=== PATIENT | male | born 1970 | race Caucasian/White ===

== ENCOUNTER 2017-12-12 16:53 | Emergency (ER) | payer OTHER ==
[~2017-12-12] VITALS: Ht 170.2 cm; Wt 74.0 kg
[~2017-12-12 16:53] MED LIST: VNTHFA/IN INH
[2017-12-12 17:06] VITALS: TEMP 36.3; Ht 170.2 cm; Wt 74.0 kg
[2017-12-12] MEDS ORDERED: KETOROLAC TROMETHAMINE 30 MG/ML VIAL IV STA (17:29)
[2017-12-12] MEDS ORDERED: SODIUM CHLORIDE 0.9% 1000ML 1,000 ML IV STA (17:29)
[2017-12-12 17:47] LABS: BASO % 0.3 %; BASO ABS # 0.02 K/uL (0-0.2); EOS % 2.1 %; EOS ABS # 0.15 K/uL (0-0.5); HEMATOCRIT 41.6 % (42-52); HEMOGLOBIN 14.8 g/dL (14.0-18.0); IG# 0.01 K/uL (0.00-0.02); LYMPH % 32.2 %; LYMPH ABS # 2.25 K/uL (1.2-3.4); MEAN CELL VOLUME 86.8 fL (80-100); MEAN CORPUSCULAR HEMOGLOBIN 30.9 pg (25-34); MEAN CORPUSCULAR HGB CONC 35.6 g/dl (32-36); MEAN PLATELET VOLUME 9.2 fL (7.4-10.4); MONO % 11.4 %; NEUT % 53.9 %; NEUT ABS # 3.76 K/uL (1.4-6.5); PLATELET COUNT 201 K/uL (130-400); RED CELL DISTRIBUTION WIDTH CV 13.1 % (11.5-14.5); WHITE BLOOD COUNT 6.99 K/uL (4.8-10.8)
--- NOTE | 2017-12-12 18:01 | DIAGNOSTIC IMAGING REPORT ---
ABD/PELVIS WITHOUT FOR STONE HISTORY: 47 years-old Male rt groin pain acute lower abdominal and right groin pain COMPARISON: CT abdomen and pelvis 12/12/2008 TECHNIQUE: Multiple axial CT images of the abdomen and pelvis were obtained without the use of IV contrast. A dose lowering technique was used consistent with the principals of NOE. FINDINGS: There is minimal dependent subsegmental bibasilar atelectasis. No pneumatosis or pneumoperitoneum identified. The imaged inferior cardiac chambers are unremarkable. The gallbladder, liver, spleen, pancreas and adrenal glands are within normal limits. 2 nonobstructing calculi are seen within the left kidney measuring up to 2 mm. There are least 3 nonobstructing calculi on the right measuring up to 2 mm. No ureteral calculi or obstructive uropathy. Ureters and urinary bladder are unremarkable. Nonspecific calcifications are seen within the bilateral corpus cavernosum. Aorta is normal in course and caliber. No bulky adenopathy. Moderate sized hiatal hernia with partially intrathoracic stomach. Prominent periesophageal vasculature is noted at the level of the diaphragmatic hiatus. No bowel obstruction or focal bowel wall thickening identified. Appendix appears normal. Soft tissues are within normal limits. Mild multilevel degenerative changes about the spine. IMPRESSION: 1. Bilateral nonobstructing nephrolithiasis without ureteral calculi or obstructive uropathy. 2. Moderate sized hiatal hernia with partially intrathoracic stomach. 3. No bowel obstruction or focal bowel wall thickening. Normal appendix. The above report was generated using voice recognition software. It may contain grammatical, syntax or spelling errors. Electronically signed by: Jeff Casey M.D. 12/12/2017 6:00 PM Dictated Date/Time: 12/12/2017 5:52 PM
[2017-12-12 18:02] LABS: CALCIUM 8.4 mg/dl (8.5-10.1); CREATININE 0.89 mg/dl (0.60-1.40); POTASSIUM 3.9 mmol/L (3.5-5.1)
--- NOTE | 2017-12-12 18:36 | DIAGNOSTIC IMAGING REPORT ---
(TESTICULAR) SCROTUM-CONT HISTORY: Pain rt testicle pain COMPARISON: None. FINDINGS: Right testis: Maximum dimension 4.4 cm. Normal vascular flow. Moderate edematous change of the epididymis. Left testis: Maximum dimension 4.7 cm. Normal vascular flow. IMPRESSION: 1. Normal testicular ultrasound. 2. Moderate right epididymitis. The above report was generated using voice recognition software. It may contain grammatical, syntax or spelling errors. Electronically signed by: Vitor Hu M.D. 12/12/2017 6:35 PM Dictated Date/Time: 12/12/2017 6:34 PM
[2017-12-12] MEDS ORDERED: LEVOFLOXACIN 250 MG TAB PO STA (19:46)
--- NOTE | 2017-12-12 19:49 | EMERGENCY ROOM VISIT NOTE ---
History Report prepared by Bob: Eulalia Wild Under the Supervision of: Karla FelixO. First contact with patient: 17:15 Chief Complaint: GROIN PAIN Stated Complaint: LOWER ABDOMINAL PAIN History of Present Illness The patient is a 47 year old male who presents to the Emergency Room with complaints of waxing and waning right testicular pain beginning 2 hours prior to arrival. The patient describes the pain as sharp. He denies any trauma and reports that he was watching television when the pain came on. The patient states that he was shoveling this morning and states that he possibly may have pulled something. The patient denies having nausea. He reports a history of kidney stones and states that he has cerebral palsy. Source of History: patient Onset: 2 hours prior to arrival Position: other (right testicle) Quality: sharp Timing: waxes/wanes Associated Symptoms: No nausea Review of Systems See HPI for pertinent positives & negatives. A total of 10 systems reviewed and were otherwise negative. Past Medical & Surgical Medical Problems: (1) Cerebral palsy (2) History of kidney stones Family History Seizures Social History Smoking Status: Never Smoker Alcohol Use: none Housing Status: lives alone Occupation Status: unemployed Current/Historical Medications Scheduled Carbamazepine Extended Release (Tegretol Xr), 400 MG PO AMPM Carbamazepine Extended Release (Tegretol Xr), 100 MG PO QAM Citalopram Hydrobromide (Citalopram Hydrobromide), 10 MG PO DAILY Omeprazole (Prilosec), 20 MG PO DAILY Scheduled PRN Albuterol Hfa (Ventolin Hfa), 2 PUFFS INH Q6H PRN for SOB/Wheezing Allergies Coded Allergies: Paroxetine (Unverified Allergy, Severe, SEIZURES, 10/28/09) Aspirin (Verified Adverse Reaction, D/T MEDS, 05/22/13) Phenytoin (Verified Adverse Reaction, D/T MEDS, 05/22/13) Uncoded Allergies: PHENABARBATOL (Adverse Reaction, D/T MEDS, 05/22/13) Physical Exam Vital Signs Date Time Temp Pulse Resp B/P (MAP) Pulse Ox O2 Delivery O2 Flow Rate FiO2 12/12/17 18:48 61 18 114/75 98 Room Air 12/12/17 17:06 36.3 55 16 124/85 98 Room Air Physical Exam CONSTITUTIONAL/VITAL SIGNS: Reviewed / noted above. GENERAL: Non-toxic in appearance. INTEGUMENTARY: Warm, dry, and [place]. HEAD: Normocephalic. EYES: without scleral icterus or trauma. ENT/OROPHARYNX: clear and moist. LYMPHADENOPATHY/NECK: Is supple without lymphadenopathy or meningismus. RESPIRATORY: Lungs clear and equal. CARDIOVASCULAR: Regular rate and rhythm. GI/ABDOMEN: Soft and nontender. No organomegaly or pulsatile mass. No rebound or guarding. Normal bowel sounds. EXTREMITIES: Warm and well perfused. BACK: No CVA tenderness. NEUROLOGICAL: Intact without focal deficits. PSYCHIATRIC: normal affect. MUSCULOSKELETAL: Normally developed with good muscle tone. GROIN: Tenderness to palpation of right inguinal area and right testicle. No obvious swelling or scrotal edema. No obvious infection. Medical Decision & Procedures ER Provider Diagnostic Interpretation: Radiology results as stated below per my review and radiologist interpretation: ABD/PELVIS WITHOUT FOR STONE HISTORY: 47 years-old Male rt groin pain acute lower abdominal and right groin pain COMPARISON: CT abdomen and pelvis 12/12/2008 TECHNIQUE: Multiple axial CT images of the abdomen and pelvis were obtained without the use of IV contrast. A dose lowering technique was used consistent with the principals of NOE. FINDINGS: There is minimal dependent subsegmental bibasilar atelectasis. No pneumatosis or pneumoperitoneum identified. The imaged inferior cardiac chambers are unremarkable. The gallbladder, liver, spleen, pancreas and adrenal glands are within normal limits. 2 nonobstructing calculi are seen within the left kidney measuring up to 2 mm. There are least 3 nonobstructing calculi on the right measuring up to 2 mm. No ureteral calculi or obstructive uropathy. Ureters and urinary bladder are unremarkable. Nonspecific calcifications are seen within the bilateral corpus cavernosum. Aorta is normal in course and caliber. No bulky adenopathy. Moderate sized hiatal hernia with partially intrathoracic stomach. Prominent periesophageal vasculature is noted at the level of the diaphragmatic hiatus. No bowel obstruction or focal bowel wall thickening identified. Appendix appears normal. Soft tissues are within normal limits. Mild multilevel degenerative changes about the spine. IMPRESSION: 1. Bilateral nonobstructing nephrolithiasis without ureteral calculi or obstructive uropathy. 2. Moderate sized hiatal hernia with partially intrathoracic stomach. 3. No bowel obstruction or focal bowel wall thickening. Normal appendix. The above report was generated using voice recognition software. It may contain grammatical, syntax or spelling errors. Electronically signed by: Jeff Casey M.D. 12/12/2017 6:00 PM Dictated Date/Time: 12/12/2017 5:52 PM (TESTICULAR) SCROTUM-CONT HISTORY: Pain rt testicle pain COMPARISON: None. FINDINGS: Right testis: Maximum dimension 4.4 cm. Normal vascular flow. Moderate edematous change of the epididymis. Left testis: Maximum dimension 4.7 cm. Normal vascular flow. IMPRESSION: 1. Normal testicular ultrasound. 2. Moderate right epididymitis. The above report was generated using voice recognition software. It may contain grammatical, syntax or spelling errors. Electronically signed by: Vitor Hu M.D. 12/12/2017 6:35 PM Dictated Date/Time: 12/12/2017 6:34 PM Laboratory Results 12/12/17 17:18 Red Blood Count 4.79, Mean Corpuscular Volume 86.8, Mean Corpuscular Hemoglobin 30.9, Mean Corpuscular Hemoglobin Concent 35.6, Mean Platelet Volume 9.2, Neutrophils (%) (Auto) 53.9, Lymphocytes (%) (Auto) 32.2, Monocytes (%) (Auto) 11.4, Eosinophils (%) (Auto) 2.1, Basophils (%) (Auto) 0.3, Neutrophils # (Auto ) 3.76, Lymphocytes # (Auto) 2.25, Monocytes # (Auto) 0.80, Eosinophils # (Auto ) 0.15, Basophils # (Auto) 0.02 12/12/17 17:18 Test 12/12/17 17:18 12/12/17 19:06 White Blood Count 6.99 K/uL (4.8-10.8) Red Blood Count 4.79 M/uL (4.7-6.1) Hemoglobin 14.8 g/dL (14.0-18.0) Hematocrit 41.6 % (42-52) Mean Corpuscular Volume 86.8 fL (80-100) Mean Corpuscular Hemoglobin 30.9 pg (25-34) Mean Corpuscular Hemoglobin Concent 35.6 g/dl (32-36) Platelet Count 201 K/uL (130-400) Mean Platelet Volume 9.2 fL (7.4-10.4) Neutrophils (%) (Auto) 53.9 % Lymphocytes (%) (Auto) 32.2 % Monocytes (%) (Auto) 11.4 % Eosinophils (%) (Auto) 2.1 % Basophils (%) (Auto) 0.3 % Neutrophils # (Auto) 3.76 K/uL (1.4-6.5) Lymphocytes # (Auto) 2.25 K/uL (1.2-3.4) Monocytes # (Auto) 0.80 K/uL (0.11-0.59) Eosinophils # (Auto) 0.15 K/uL (0-0.5) Basophils # (Auto) 0.02 K/uL (0-0.2) RDW Standard Deviation 42.0 fL (36.4-46.3) RDW Coefficient of Variation 13.1 % (11.5-14.5) Immature Granulocyte % (Auto) 0.1 % Immature Granulocyte # (Auto) 0.01 K/uL (0.00-0.02) Anion Gap 7.0 mmol/L (3-11) Est Creatinine Clear Calc Drug Dose 96.0 ml/min Estimated GFR () 118.0 Estimated GFR (Non- 101.8 BUN/Creatinine Ratio 16.7 (10-20) Calcium Level 8.4 mg/dl (8.5-10.1) Urine Color YELLOW Urine Appearance CLEAR (CLEAR) Urine pH 6.5 (4.5-7.5) Urine Specific [place] 1.026 (1.000-1.030) Urine Protein NEG (NEG) Urine Glucose (UA) NEG (NEG) Urine Ketones NEG (NEG) Urine Occult Blood NEG (NEG) Urine Nitrite NEG (NEG) Urine Bilirubin NEG (NEG) Urine Urobilinogen NEG (NEG) Urine Leukocyte Esterase NEG (NEG) Urine WBC (Auto) 1-5 /hpf (0-5) Urine RBC (Auto) 0-4 /hpf (0-4) Urine Hyaline Casts (Auto) 1-5 /lpf (0-5) Urine Epithelial Cells (Auto) 5-10 /lpf (0-5) Urine Bacteria (Auto) NEG (NEG) Laboratory results as stated above per my review. Medications Administered Medications (Trade) Dose Ordered Sig/Kaycee Route Start Time Stop Time Status Last Admin Dose Admin Sodium Chloride 1,000 ml @ 999 mls/hr Q1H1M STAT IV 12/12/17 17:29 12/12/17 18:29 DC 12/12/17 17:39 999 MLS/HR Ketorolac Tromethamine (Toradol Inj) 30 mg NOW STAT IV 12/12/17 17:29 12/12/17 17:32 DC 12/12/17 17:39 30 MG ED Course 1723: Previous medical records were reviewed. The patient was evaluated in room A8. A complete history and physical examination was performed. 1728: Ordered Toradol Inj 30 mg IV, Sodium Chloride 1,000 ml @ 999 mls/hr IV. 1935: On reevaluation, the patient is resting. I discussed the results and findings with the patient. He verbalized agreement of the treatment plan. He was discharged home. 1944: Levaquin 500mg PO Medical Decision The patient is a 47 year old male who presents to the ED with complaints of right testicular pain. Differentials include: kidney stone, testicular torsion, and epididymitis. This is a 47-year-old male who presents to the ED with a chief complaint of right groin and right testicle pain. His symptoms started a couple of hours before he came in. He states that his pain comes and goes. It started while he was watching TV. He reports that he was shoveling snow earlier in the day. Denies any fevers or vomiting. Vital signs are normal. Physical exam reveals some tenderness to palpation of the right groin as well as right testicle. There is no other obvious abnormalities with regards the testicle other than tenderness. CBC was normal, urine did not show infection, ultrasound reveals right epididymitis, CT scan of the abdomen pelvis did not show acute process. There is a moderate hiatal hernia. The patient denies being sexually active. The patient was treated with IV Toradol, IV fluids and IV Levaquin. He was told the results. He was discharged on Levaquin. He will take Tylenol or Motrin for pain Medication Reconcilliation Current Medication List: was personally reviewed by me Blood Pressure Screening Patient's blood pressure: Normal blood pressure Impression Primary Impression: Epididymitis Scribe Attestation The scribe's documentation has been prepared under my direction and personally reviewed by me in its entirety. I confirm that the note above accurately reflects all work, treatment, procedures, and medical decision making performed by me. Departure Information Dispostion Home / Self-Care Prescriptions Levofloxacin (Levaquin) 500 Mg Tab 500 MG PO DAILY for 10 Days, #10 TAB Prov: Arjun Guzman D.O. 12/12/17 Referrals No Doctor, Assigned (PCP) Forms HOME CARE DOCUMENTATION FORM, IMPORTANT VISIT INFORMATION, WORK / SCHOOL INSTRUCTIONS Patient Instructions My [facility] Additional Instructions Levaquin as prescribed. Take Tylenol/Motrin for pain. Follow-up with your doctor for further care and evaluation in 5-10 days if not improving. Return to the emergency department for worsening or new symptoms or any concerns. You have been examined and treated today on an emergency basis only. This is not a substitute for, or an effort to provide, complete comprehensive medical care. It is impossible to recognize and treat all injuries or illnesses in a single emergency department visit. It is therefore important that you follow up closely with your doctor. Call as soon as possible for an appointment.
[2017-12-12] MEDS ORDERED: LEVO-366 PO (19:51)
[2017-12-12 20:27] VITALS: BP 123/81; PULSE 66; O2SAT 97
[2017-12-12] MEDS ORDERED: PRLSR20 PO (23:40)
[2017-12-12] MEDS ORDERED: CARB400T3 PO (23:41)
[2017-12-12] MEDS ORDERED: CARB1CAP10 PO (23:41)
[2017-12-12] MEDS ORDERED: CITA10TA4 PO (23:42)
== END 2017-12-12 20:28 | disposition home or self-care (01) ==
LOC: C.EDB 16:54 → C.EDA 20:28
DX: N45.1 Epididymitis (principal); G80.9 Cerebral palsy, unspecified; Z87.442 Personal history of urinary calculi; Z79.899 Other long term (current) drug therapy; Z88.8 Allergy status to other drugs, medicaments and biological substances